=== PATIENT | female | born 1960 | race Caucasian/White ===

== ENCOUNTER 2023-10-28 13:49 | Emergency (ER) | payer SELFPAY ==
[~2023-10-28] VITALS: Ht 165.1 cm; Wt 90.0 kg
[2023-10-28] MEDS ORDERED: CITALOPRAM HBR10 MG PO (13:57)
[2023-10-28] MEDS ORDERED: LEVOTHYROXINE13 MCG PO (13:57)
[2023-10-28 14:28] LABS: BASO # 0.03 K/mm3 (0.02-0.10); EOS # 0.16 K/mm3 (0.04-0.40); EOS % 1.9 % (1.0-5.0); HEMATOCRIT 42.2 % (37.0-47.0); HEMOGLOBIN 14.1 g/dL (12.5-16.0); LYMPH# 1.96 K/mm3 (1.50-4.00); MEAN CELL VOLUME 94 fl (78-100); MEAN CORPUSCULAR HEMOGLOBIN 32 pg (27-31); MEAN CORPUSCULAR HGB CONC 33 g/dL (33-37); MONO # 0.79 K/mm3 (0.20-0.80); NEU # 5.65 K/mm3 (1.40-6.50); PLATELET COUNT 334 K/mm3 (130-400); RED BLOOD COUNT 4.47 M/mm3 (4.10-5.30); RED CELL DISTRIBUTION WIDTH 12.1 % (11.5-14.5); WHITE BLOOD COUNT 8.6 K/mm3 (4.8-10.8)
[2023-10-28 14:37] LABS: ALBUMIN 4.2 g/dL (3.4-4.8)
[2023-10-28 14:40] LABS: TOTAL PROTEIN 7.5 g/dL (6.2-8.1)
[2023-10-28 14:42] LABS: TOTAL BILIRUBIN 0.6 mg/dL (0.2-1.2)
[2023-10-28] MEDS ORDERED: AMOXICILLIN AND1 TA2 PO (15:22)
[2023-10-28 15:35] VITALS: BP 133/72
== END 2023-10-28 15:35 | disposition home or self-care (01) ==
LOC: ED 13:49
PROVIDERS: Nurse Practitioner
DX: J69.0 Pneumonitis due to inhalation of food and vomit (principal); R50.9 Fever, unspecified